=== PATIENT | female | born 1975 | race Caucasian/White ===

== ENCOUNTER → 2017-01-05 | Outpatient (CLI) | payer OTHER ==
[~2017-01-05] MED LIST: CIPR500T PO; IOHEXOL 240 MG/ML 50ML VIAL. PO ONE; IOHEXOL 300 MG/ML 100ML VIAL. IV ONE; METR500T4 PO; OMEP40CA5 PO
--- NOTE | 2017-01-05 11:49 | KCIC ---
CT abdomen and pelvis with contrast Indication: Left lower quadrant pain. Axial imaging through the abdomen and pelvis was performed after the administration of intravenous contrast. PQRS STATEMENT One or more of the following individualized dose reduction techniques were utilized for this study: 1.Automated exposure control. 2.Adjustment of the mA and/orkVaccording to patient size. 3.Use of iterative reconstruction technique. No prior studies available for comparison. The lung bases are clear. The liver is unremarkable apart from a tiny low density in the inferior right lobe, too small to characterize but likely a cyst. The gallbladder is unremarkable. The pancreas and spleen are unremarkable. No adrenal mass is detected. There appears to be a tiny nonobstructing calculus upper pole left kidney. Right kidney contains a tiny nonobstructing calculus in the lower pole. There is also a small cortical low density in the lower pole of the right kidney, too small to characterize but likely a cyst. The aorta is not aneurysmal. No central retroperitoneal or mesenteric lymphadenopathy is seen. The bladder and uterus are unremarkable. No acute inflammatory process is seen. There is no ascites or fluid collection. Impression: Nonobstructing bilateral nephrolithiasis. Probable small hepatic and renal cysts. No acute feature in the abdomen or pelvis is identified. Electronically signed by: Mike Salter MD (Jan 05, 2017 11:48:21)
== END | disposition home or self-care (01) ==
LOC: KCIC CT 09:59
PROVIDERS: ATTEND Family Medicine
DX: N20.0 Calculus of kidney (principal)
CPT/HCPCS: 74177; Q9966; Q9967

== ENCOUNTER → 2017-03-08 | Day surgery (SDC) | payer OTHER ==
[~2017-03-08] MED LIST changes: +HYDROmorphone 2 MG/ML VIAL IV PRN; +IBUP-1027 PO; -IOHEXOL 240 MG/ML 50ML VIAL. PO ONE; -IOHEXOL 300 MG/ML 100ML VIAL. IV ONE; +IV RINGERS,LACTATED 1000ML 1,000 ML IV SCH; +L.AC1CAP6 PO; +LIDOCAINE 1% 1 ML SYRINGE. ID PRN; +LIDOCAINE 2% PF Vial for OR 5 ML VIAL. ONE; +MORPHINE SULFATE 2 MG/ML DISP.SYRIN. IV PRN; +PROCHLORPERAZINE 10 MG/2 ML VIAL. IV PRN; +PROPOFOL 0 ML IV ONE; +PROPOFOL 40 ML IV ONE; +fentaNYL PF VIAL 100 MCG/2 ML VIAL IV PRN
[2017-03-08 09:55] LABS: NEG OBC UR NEG; POS OBC UR POS
[2017-03-08 09:57] VITALS: BP 117/68
--- NOTE | 2017-03-08 10:22 | PREOP HP ---
DATE OF SERVICE: 03/08/2017 REQUESTING PHYSICIAN: Dr. Mike Cano. REASON FOR PROCEDURE: Left-sided abdominal pain. HISTORY OF PRESENT ILLNESS: This is a 41-year-old female who presents for left-sided abdominal pain. She was treated empirically for diverticulitis and CT on 01/05/2017 revealed no abnormality. ALLERGIES: No known drug allergies. PAST MEDICAL HISTORY: Significant for . FAMILY MEDICAL HISTORY: Significant for hypertension, myocardial infarction. No colorectal cancer. SOCIAL HISTORY: Less than 7 alcoholic beverages a week. No tobacco or IV drug abuse. PAST SURGICAL HISTORY: Four C-sections and one D and C. MEDICATIONS: Probiotics. REVIEW OF SYSTEMS: A 13-point review of systems was done. It is positive as per HPI and otherwise negative. PHYSICAL EXAMINATION: VITAL SIGNS: She is afebrile. Her vital signs are stable. GENERAL: She is a well-developed, well-nourished female, in no apparent distress. HEENT: Oropharynx is clear. CARDIOVASCULAR: S1, S2. LUNGS: Clear. ABDOMEN: Normoactive bowel sounds, soft, nontender, nondistended. EXTREMITIES: No edema. NEUROLOGIC: Awake, alert and oriented x 3. ASSESSMENT AND PLAN: Left lower quadrant abdominal pain: The risks and benefits of the procedure including bleeding, perforation and sedation were explained and she has agreed to proceed. Thank you for allowing me to participate in the care of this patient. BREA MALDONADO MD DR: PANCHO/melvin JOB#: [id number] / [id number]
--- NOTE | 2017-03-13 10:07 | PATHOLOGY ---
PATHOLOGY REPORT * * * * * * * * FINAL DIAGNOSIS: A. Small bowel, terminal ileum, biopsy: - No pathologic diagnosis. - Normal villous architecture. B. Colon, sigmoid, biopsy: - Three fragments of colonic mucosa with focal mild hyperplastic changes. - No evidence of acute or chronic colitis. REPORT ELECTRONICALLY SIGNED BY: Sailaja Marina M.D. DATE/TIME: 03/13/2017 10:06 * * * * * * * * GROSS PATHOLOGY: A. Received in formalin labeled "Adelfo Quinones, terminal ileum biopsy," are two segments of stewart soft tissue measuring 0.4 x 0.4 x 0.1 cm in aggregate dimensions and ranging from 0.2 to 0.4 cm in maximum dimension. The specimen is submitted entirely in cassette A1. B. Received in formalin labeled "Adelfo Quinones, sigmoid biopsy," are three segments of stewart soft tissue measuring 0.8 x 0.7 x 0.1 cm in aggregate dimensions and ranging from 0.3 to 0.5 cm in maximum dimension. The specimen is submitted entirely in cassette B1. (CAA; 03/09/2017) INITIAL CPT CODE(S): A; 77261 B; 34135 Professional services performed [place] [address] Technical services performed by [facility] at [address] [place] [address], [facility] [address] [place] [address]. SPECIMEN(S) RECEIVED: A.Terminal ileum biopsy B.Sigmoid biopsy CLINICAL HISTORY: Abdominal pain PATIENT: ADELFO QUINONES /AGE: 1109/15/1975 (Age: 41) PATIENT #: [id number] ALT CASE #: SPECIMEN COLLECTION DATE: 03/08/2017 SPECIMEN RECEIVED DATE: 03/08/2017 [facility] - [id number] [place] [address] - PHONE: [phone] * * * END OF REPORT * * *
== END | disposition home or self-care (01) ==
LOC: ENDOS 08:06
PROVIDERS: ATTEND Internal Medicine Gastroenterology
DX: K64.0 First degree hemorrhoids (principal); K63.3 Ulcer of intestine; Z82.49 Family history of ischemic heart disease and other diseases of the circulatory system; Z72.0 Tobacco use; K63.89 Other specified diseases of intestine
CPT/HCPCS: 45380; 81025; 88305; J2704

== ENCOUNTER → 2020-05-24 | Outpatient (CLI) | payer OTHER ==
[2017-03-08 09:57] VITALS: BP 117/68
[~2020-05-24] MED LIST changes: -HYDROmorphone 2 MG/ML VIAL IV PRN; +IOHEXOL 240 MG/ML 50ML VIAL. PO ONE; +IOHEXOL 300 MG/ML 100ML VIAL. IV ONE; -IV RINGERS,LACTATED 1000ML 1,000 ML IV SCH; -LIDOCAINE 1% 1 ML SYRINGE. ID PRN; -LIDOCAINE 2% PF Vial for OR 5 ML VIAL. ONE; +METR-34 PO; -METR500T4 PO; -MORPHINE SULFATE 2 MG/ML DISP.SYRIN. IV PRN; +OMEP40CA45 PO; -OMEP40CA5 PO; -PROCHLORPERAZINE 10 MG/2 ML VIAL. IV PRN; -PROPOFOL 0 ML IV ONE; -PROPOFOL 40 ML IV ONE; -fentaNYL PF VIAL 100 MCG/2 ML VIAL IV PRN
--- NOTE | 2020-05-24 15:01 | KCIC ---
CT scan of the abdomen and pelvis with IV contrast compared to similar exam dated 01/05/2017 for left lower quadrant pain, history of colitis, history of ulcerative the terminal ileum, was on antibiotics, however pain started again after finishing medications. TECHNIQUE: CT scan of the abdomen and pelvis with IV and oral contrast was obtained. Sagittal and coronal reformations are evaluated. FINDINGS: Lung bases are clear. There is a benign cyst in the right lobe the liver. No other hepatic parenchymal abnormalities, no further follow-up is recommended in this regard. The pancreas, gallbladder, bilateral adrenal glands, and left kidney are all normal. Simple cyst on the right kidney is noted, once again no further follow-up is recommended. No hydronephrosis or hydroureter. No suspicious abdominal or retroperitoneal lymphadenopathy. No free or loculated fluid collections. There is inhomogeneous opacification of small bowel, with no opacification of large bowel. No areas of bowel obstruction. No focal small bowel wall thickening. No pericolonic inflammatory changes. The urinary bladder is partially fluid distended and grossly unremarkable. No adnexal masses are identified. No suspicious inguinal adenopathy. The appendix is normal. There are a few small bone islands with no suspicious osteoblastic or osteolytic bone lesions identified. IMPRESSION: 1. No acute intra-abdominal or intrapelvic abnormalities on the CT scan. Specifically, no evidence of recurrent colitis or enteritis, and no intra-abdominal or intrapelvic abscesses. Para PQRS Compliance Statement: One or more of the following individualized dose reduction techniques were utilized for this examination: 1. Automated exposure control 2. Adjustment of the mA and/or kV according to patient size 3. Use of iterative reconstruction technique Electronically signed by: Sai Odell MD (05/24/2020 2:59 PM) [id number]
== END | disposition home or self-care (01) ==
LOC: KCIC CT 08:01
PROVIDERS: ATTEND Family Medicine
DX: N28.1 Cyst of kidney, acquired (principal); J98.4 Other disorders of lung
CPT/HCPCS: 74177; Q9966; Q9967